=== PATIENT | male | born 1980 | race Two or more races ===

== ENCOUNTER → 2018-03-17 | Outpatient (CLI) | payer MEDICAID ==
[~2018-03-17] VITALS: Ht 172.7 cm; Wt 66.2 kg
[~2018-03-17] MED LIST: PANTOPRAZOLE SO40 MG ORAL
[2018-03-17 10:31] VITALS: BP 101/62
--- NOTE | 2018-03-18 09:47 | GI Initial Consult Note ---
History of Present Illness General Date patient seen: March 17, 2018 Time patient seen: 10:00 Referring physician: MARIA L Reason for Consultation: WEIGHT LOSS Present Illness HPI 38 year old male patient referred by Dr. Bustillo for evaluation of sudden weight loss. Pt presents today with c/o of LUQ/Epigastric pain, GERD, constipation, N/ V, and abdominal bloating. States that his appetite is good. The patient had recent endoscopy 12/05/17 that showed reflux esophagitis. The patient took prevacid with no relief, continued to have abdominal pain and presented himself to the ED in February of 2018. Reports that stress and anxiety has increased his symptoms. Had extreme weight loss from 188lbs to 146 lbs in a span of a few months. In addition, states he had occasional dark stool. No signs of abuse or neglect. Patient is not fall risk. Home Meds Reported Medications Pantoprazole* (PANTOPRAZOLE*) 40 Mg Tablet., 40 MG ORAL DAILY, TAB 03/17/18 Med list reviewed/reconciled: Yes Allergies: Coded Allergies: No Known Allergies (Unverified , 03/17/18) Patient History History Provided By: Patient, Medical Record PMH Narrative Hemorrhoids Polyps Family History Narrative Father >> PUD Social History: Denies: smoking, alcohol use, drug use, other Review of Systems All Other Systems: negative except mentioned in HPI Physical Exam Vital Signs Date Time Temp Pulse Resp B/P (MAP) Pulse Ox O2 Delivery O2 Flow Rate FiO2 03/17/18 10:31 97.6 69 16 101/62 99 97.6 Sp02 EP Interpretation: reviewed, normal General Appearance: well appearing, no apparent distress, alert Head: normocephalic EENT: PERRL/EOMI, normal ENT inspection Neck: supple Respiratory: normal breath sounds, no respiratory distress Cardiovascular: normal rate Gastrointestinal: normal inspection, non tender, soft, normal bowel sounds, non -distended Rectal: deferred Genitourinary: deferred Musculoskeletal: normal inspection, back normal Neurologic: normal inspection, alert, oriented x3, responsive Psychiatric: normal inspection, judgement/insight normal, memory normal Skin: normal inspection, normal color, no rash, warm/dry, palpation normal, well hydrated Lymphatic: normal inspection, no adenopathy GI: Plan Problems: (1) Hemorrhoid (2) Colon polyps (3) Abdominal pain (4) Constipation (5) Bloating (6) Nausea & vomiting (7) GERD (gastroesophageal reflux disease) (8) Weight loss, unintentional Plan EGD/EUS scheduled for 03/25/18. - NPO @ OR day prior procedure. Seen with Dr. Rushing. Thank you for this patient referral. The patient was seen and examined at bedside and all new and available data was reviewed in the patients chart. I agree with the above findings, impression and plan. (Patient seen earlier today. Signature stamp does not reflect patient encounter time.). - MD Leonor TabaresTempe St[facility] HospitalAlexey [place] [facility] March 18, 2018 09:47
== END | disposition home or self-care (01) ==
LOC: PAN 10:01
DX: R10.13 Epigastric pain (principal); K21.9 Gastro-esophageal reflux disease without esophagitis; R63.4 Abnormal weight loss; K64.9 Unspecified hemorrhoids; K63.5 Polyp of colon; R14.0 Abdominal distension (gaseous); R11.2 Nausea with vomiting, unspecified
CPT/HCPCS: 99201

== ENCOUNTER 2018-03-25 09:11 | Day surgery (SDC) | payer MEDICAID ==
[~2018-03-25] VITALS: Ht 172.7 cm; Wt 67.1 kg
[2018-03-25] VITALS (9 sets, daily range): BP systolic 101–113; BP diastolic 62–75
[2018-03-25] MEDS ORDERED: BENTYL10 MG/1 ML IM (09:52)
[2018-03-25] MEDS ORDERED: PANTOPRAZOLE SO40 MG ORAL (09:52)
[2018-03-25 10:54] LABS: BASOPHILS % (AUTO) 1.5 % (0.0-2.0); EOSINOPHILS % (AUTO) 3.6 % (0.0-3.0); HEMATOCRIT 37.8 % (42.0-52.0); LYMPHOCYTES % (AUTO) 40.3 % (20.0-45.0); MEAN CORPUSCULAR VOLUME 87 FL (80-99); MONOCYTES % (AUTO) 8.9 % (1.0-10.0); NEUTROPHILS % (AUTO) 45.9 % (45.0-75.0); PLATELET COUNT 221 K/UL (150-450); RED BLOOD COUNT 4.33 M/UL (4.70-6.10); RED CELL DISTRIBUTION WIDTH 10.4 % (11.6-14.8); WHITE BLOOD COUNT 5.1 K/UL (4.8-10.8)
[2018-03-25 10:59] LABS: ANION GAP 6 mmol/L (5-15); BLOOD UREA NITROGEN 14 mg/dL (7-18); CALCIUM 9.2 MG/DL (8.5-10.1); CARBON DIOXIDE 29 MMOL/L (21-32); CHLORIDE 104 MMOL/L (98-107); POTASSIUM 3.7 MMOL/L (3.5-5.1); SODIUM 139 MMOL/L (136-145)
[2018-03-25 11:03] LABS: ALANINE AMINOTRANSFERASE 29 U/L (12-78); ALBUMIN 3.9 G/DL (3.4-5.0); ALBUMIN/GLOBULIN RATIO 1.2 (1.0-2.7); ALKALINE PHOSPHATASE 51 U/L (46-116); AMYLASE 81 U/L (25-115); ASPARTATE AMINO TRANSFERASE 11 U/L (15-37); BILIRUBIN,TOTAL 0.5 MG/DL (0.2-1.0)
--- NOTE | 2018-03-25 11:26 | Pre-Procedure Note/Attestation ---
Pre-Procedure Note/Attestation Complete Prior to Procedure Planned Procedure: not applicable Procedure Narrative: eus Indications for Procedure Pre-Operative Diagnosis: wt loss Attestation I attest that I discussed the nature of the procedure; its benefits; risks and complications; and alternatives (and the risks and benefits of such alternatives ), prior to the procedure, with the patient (or the patient's legal inventory representative). I attest that, if there was a reasonable possibility of needing a blood transfusion, the patient (or the patient's legal inventory representative) was given the [facility] standardized written summary, pursuant to the Mau Bronson Blood Safety Act ([place] Health and Safety Code # 1645, as amended). I attest that I re-evaluated the patient just prior to the surgery and that there has been no change in the patient's H&P, except as documented below: Francisco Rushing MD March 25, 2018 11:26
--- NOTE | 2018-03-25 11:26 | Short Stay Surgery H&P ---
History of Present Illness History of Present Illness Chief Complaint see recent consult note HPI Aleta Simmons is a 38 year old male who was admitted on for Weight Loss, Other Diseases Of Stomach/Duodenum Patient History Allergies: Coded Allergies: No Known Allergies (Unverified , 03/17/18) Medication History Scheduled Pantoprazole* (Pantoprazole*), 40 MG ORAL DAILY, (Reported) Miscellaneous Medications Dicyclomine Hcl (Bentyl), 10 MG IM, (Reported) Physical Exam Vital Signs Last Vital Signs Date Time Temp Pulse Resp B/P (MAP) Pulse Ox O2 Delivery O2 Flow Rate FiO2 03/25/18 09:59 97.7 64 20 107/63 100 Room Air 97.7 Labs Laboratory Tests Test 03/25/18 10:00 White Blood Count 5.1 K/UL (4.8-10.8) Red Blood Count 4.33 M/UL (4.70-6.10) L Hemoglobin 13.0 G/DL (14.2-18.0) L Hematocrit 37.8 % (42.0-52.0) L Mean Corpuscular Volume 87 FL (80-99) Mean Corpuscular Hemoglobin 30.0 PG (27.0-31.0) Mean Corpuscular Hemoglobin Concent 34.3 G/DL (32.0-36.0) Red Cell Distribution Width 10.4 % (11.6-14.8) L Platelet Count 221 K/UL (150-450) Mean Platelet Volume 9.3 FL (6.5-10.1) Neutrophils (%) (Auto) 45.9 % (45.0-75.0) Lymphocytes (%) (Auto) 40.3 % (20.0-45.0) Monocytes (%) (Auto) 8.9 % (1.0-10.0) Eosinophils (%) (Auto) 3.6 % (0.0-3.0) H Basophils (%) (Auto) 1.5 % (0.0-2.0) Sodium Level 139 MMOL/L (136-145) Potassium Level 3.7 MMOL/L (3.5-5.1) Chloride Level 104 MMOL/L (98-107) Carbon Dioxide Level 29 MMOL/L (21-32) Anion Gap 6 mmol/L (5-15) Blood Urea Nitrogen 14 mg/dL (7-18) Creatinine 1.0 MG/DL (0.55-1.30) Estimat Glomerular Filtration Rate > 60 mL/min (>60) Glucose Level 99 MG/DL (74-106) Calcium Level 9.2 MG/DL (8.5-10.1) Total Bilirubin 0.5 MG/DL (0.2-1.0) Aspartate Amino Transf (AST/SGOT) 11 U/L (15-37) L Alanine Aminotransferase (ALT/SGPT) 29 U/L (12-78) Alkaline Phosphatase 51 U/L (46-116) Total Protein 7.1 G/DL (6.4-8.2) Albumin 3.9 G/DL (3.4-5.0) Globulin 3.2 g/dL Albumin/Globulin Ratio 1.2 (1.0-2.7) Amylase Level 81 U/L (25-115) Lipase 236 U/L (73-393) Carcinoembryonic Antigen Pending CA 19-9 Antigen Pending Plan Attestation Are the patient's medical conditions optimized for surgery? Francisco Rushing MD March 25, 2018 11:26
[2018-03-25] MEDS ORDERED: Midazolam 2mg/2ml Inj ONE (11:30)
[2018-03-25] MEDS ORDERED: Propofol 200mg/20ml IV ONE (11:30)
[2018-03-25] MEDS ORDERED: Lidocaine 1% MPF 10mg/ml 5ml ONE (11:30)
[2018-03-25] MEDS ORDERED: Atropine Inj 1mg/10ml Syr IV PRN (12:00)
[2018-03-25] MEDS ORDERED: DiphenhydrAMINE 50mg/ml Inj IVP PRN (12:00)
[2018-03-25] MEDS ORDERED: fentaNYL 100 mcg/2 mL IV PRN (12:00)
[2018-03-25] MEDS ORDERED: Midazolam 2mg/2ml Inj IVP PRN (12:00)
--- NOTE | 2018-03-25 12:09 | Endoscopy Procedure Note ---
Endoscopy Procedure Note General Indication for Procedure: wt loss Procedures Performed: other - EUS Operative Findings/Diagnosis: gallstones Specimen: none Pt Tolerated Procedure Well: Yes Estimated Blood Loss: none Anesthesia Anesthesiologist: nestor Anesthesia: MAC Inserted Devices Implant(s) used?: No GI Core Measures 50 yrs or older w/o bx or poly: Not Applicable 10yrs. F/U not recommended: Not Applicable Francisco Rushing MD March 25, 2018 12:09
--- NOTE | 2018-03-25 12:13 | Anethesia Preoperative Eval ---
Anesthesia Pre-op PMH/ROS General Date of Evaluation: March 25, 2018 Time of Evaluation: 11:22 Anesthesiologist: aga ASA Score: ASA 2 Mallampati Score Class I : Soft palate, uvula, fauces, pillars visible Class II: Soft palate, uvula, fauces visible Class III: Soft palate, base of uvula visible Class IV: Only hard plate visible Mallampati Classification: Class II Surgeon: yosef Diagnosis: weight loss, abdominal pain Surgical Procedure: egd/eus Anesthesia History: none Social History: smoking - nonsmoker Family History: no anesthesia problems Allergies: Coded Allergies: No Known Allergies (Unverified , 03/17/18) Medications: see eMAR Past Medical History Cardiovascular: Reports: other - hypercholesterolemia Gastrointestinal/Genitourinary: Reports: other - renal nodule, gastritis, ulcer , Neurologic/Psychiatric: Reports: depression/anxiety Anesthesia Pre-op Phys. Exam Physician Exam Last Vital Signs Date Time Temp Pulse Resp B/P (MAP) Pulse Ox O2 Delivery O2 Flow Rate FiO2 03/25/18 09:59 97.7 64 20 107/63 100 Room Air 97.7 Constitutional: NAD Neurologic: CN 2-12 intact Cardiovascular: RRR Respiratory: CTA Gastrointestinal: S/NT/ND Airway Exam Mallampati Score: Class II MO: full Neck: supple TMD: 2fb ROM: full Teeth: intact Anesthesia Pre-op A/P Labs Hematology Test 03/25/18 10:00 White Blood Count 5.1 K/UL (4.8-10.8) Red Blood Count 4.33 M/UL (4.70-6.10) L Hemoglobin 13.0 G/DL (14.2-18.0) L Hematocrit 37.8 % (42.0-52.0) L Mean Corpuscular Volume 87 FL (80-99) Mean Corpuscular Hemoglobin 30.0 PG (27.0-31.0) Mean Corpuscular Hemoglobin Concent 34.3 G/DL (32.0-36.0) Red Cell Distribution Width 10.4 % (11.6-14.8) L Platelet Count 221 K/UL (150-450) Mean Platelet Volume 9.3 FL (6.5-10.1) Neutrophils (%) (Auto) 45.9 % (45.0-75.0) Lymphocytes (%) (Auto) 40.3 % (20.0-45.0) Monocytes (%) (Auto) 8.9 % (1.0-10.0) Eosinophils (%) (Auto) 3.6 % (0.0-3.0) H Basophils (%) (Auto) 1.5 % (0.0-2.0) Chemistry Test 03/25/18 10:00 Sodium Level 139 MMOL/L (136-145) Potassium Level 3.7 MMOL/L (3.5-5.1) Chloride Level 104 MMOL/L (98-107) Carbon Dioxide Level 29 MMOL/L (21-32) Anion Gap 6 mmol/L (5-15) Blood Urea Nitrogen 14 mg/dL (7-18) Creatinine 1.0 MG/DL (0.55-1.30) Estimat Glomerular Filtration Rate > 60 mL/min (>60) Glucose Level 99 MG/DL (74-106) Calcium Level 9.2 MG/DL (8.5-10.1) Total Bilirubin 0.5 MG/DL (0.2-1.0) Aspartate Amino Transf (AST/SGOT) 11 U/L (15-37) L Alanine Aminotransferase (ALT/SGPT) 29 U/L (12-78) Alkaline Phosphatase 51 U/L (46-116) Total Protein 7.1 G/DL (6.4-8.2) Albumin 3.9 G/DL (3.4-5.0) Globulin 3.2 g/dL Albumin/Globulin Ratio 1.2 (1.0-2.7) Amylase Level 81 U/L (25-115) Lipase 236 U/L (73-393) Carcinoembryonic Antigen Pending CA 19-9 Antigen Pending Risk Assessment & Plan Assessment: asa2 Plan: mac Status Change Before Surgery: No Pre-Antibiotics Drug: Karishma Baron MD March 25, 2018 12:13
--- NOTE | 2018-03-25 14:29 | Immediate Post-Op Evaluation ---
Immediate Post-Op Evalulation Immediate Post-Op Evalulation Procedure: egd/eus Date of Evaluation: March 25, 2018 Time of Evaluation: 12:25 IV Fluids: 675ml 0.9ns Blood Products: none Estimated Blood Loss: negligible Blood Pressure Systolic: 110 Blood Pressure Diastolic: 75 Pulse Rate: 87 Respiratory Rate: 18 O2 Sat by Pulse Oximetry: 100 Temperature (Fahrenheit): 97.5 Pain Score (1-10): 0 Nausea: No Vomiting: No Complications none Patient Status: awake, reacts, patent Hydration Status: adequate Drug: Karishma Baron MD March 25, 2018 14:29
--- NOTE | 2018-03-25 14:32 | 48 Hour Post Anesthesia Eval ---
Post Anesthesia Evaluation Procedure: egd/eus Date of Evaluation: March 25, 2018 Time of Evaluation: 12:27 Blood Pressure Systolic: 110 0: 71 Pulse Rate: 87 Respiratory Rate: 18 Temperature (Fahrenheit): 97.5 O2 Sat by Pulse Oximetry: 100 Airway: patent Nausea: No Vomiting: No Pain Intensity: 0 Hydration Status: adequate Cardiopulmonary Status: stable Mental Status/LOC: patient returned to baseline Post-Anesthesia Complications: none Follow-up care needed: N/A Karishma Solis MD March 25, 2018 14:32
--- NOTE | 2018-03-26 00:45 | Procedure Note ---
DATE OF PROCEDURE: 03/25/2018 SURGEON: Francisco Rushing M.D. PROCEDURE: Endoscopic ultrasound. ANESTHESIA: Per Dr. Ortiz. INSTRUMENT: Olympus EUS scope. INDICATION: Weight loss, abdominal pain. REASON FOR PROCEDURE: The procedure, risks, benefits, and possible consequences, including hemorrhage, aspiration, perforation and infection, and alternative treatments, were explained to the patient/legal guardian by Dr. Francisco Rushing and the patient/legal guardian understood and accepted these risks. DESCRIPTION OF PROCEDURE: After informed consent was obtained and the patient was adequately sedated, EUS scope was advanced from mouth into the second portion of the duodenum and pancreatic parenchyma was carefully examined through the gastroduodenal mucosa. The patient had starting scanning at GE junction, had normal left adrenal gland. Celiac axis was seen without any obvious celiac axis lymphadenopathy. Then, the scope was gently pushed into see the pancreatic body and tail while the scope was kept in the stomach. Pancreatic parenchyma grossly within normal limits. No evidence of any obvious pancreatic mass or pancreatitis. No pancreatic duct dilatation seen in this area. Then the scope was advanced into the antrum and then subsequently duodenal bulb and second portion of the duodenum. Gallbladder was carefully examined. There was evidence of a tiny stone in the gallbladder with some sludge in it. There was about 7.5 mm gallbladder polyp also seen. No obvious mass was seen in the gallbladder. No obvious mass was seen in the left lobe of the liver. The head of the pancreas was also carefully examined, there was no evidence of any mass in the head. No common bile duct. No pancreatic duct dilatation. At this time, the scope was retrieved and procedure was terminated. There was some prominent vessels around the gastric area and suspicious for small gastric varices of unknown significance. SUMMARY OF FINDINGS: 1. Prominent vessels around the stomach suspicious for small gastric varices of unknown significance. 2. One tiny stone and some sludge in the gallbladder. 3. A 7.5 mm gallbladder polyp. 4. No evidence of any pancreatic mass, pancreatitis or pancreatic duct dilatation. RECOMMENDATIONS: At this time, given the patient had epigastric abdominal pain and weight loss, we will recommend transabdominal ultrasound to confirm the presence of the stone and sludge and if that is the case the patient would benefit from possible surgical evaluation for cholecystectomy. Francisco Pasquale Rushing DR: BRADY JOB#: [id number] CC:
== END 2018-03-25 14:10 | disposition home or self-care (01) ==
LOC: GAS 09:11
DX: R63.4 Abnormal weight loss (principal); K80.20 Calculus of gallbladder without cholecystitis without obstruction; E78.00 Pure hypercholesterolemia, unspecified; F32.9 Major depressive disorder, single episode, unspecified; F41.9 Anxiety disorder, unspecified
CPT/HCPCS: 36415; 43259; 80053; 82150; 82378; 83690; 85025; J2250; J2405; J2704; Z7512; 94003; 94150